=== PATIENT | female | born 1975 | race Two or more races ===

== ENCOUNTER 2024-06-20 09:41 | Inpatient (IN) | payer MEDICAID ==
[~2024-06-20] VITALS: Ht 162.6 cm; Wt 85.9 kg
[~2024-06-20 09:41] MED LIST: PRENATAL VITS
[2024-06-20 10:22] LABS: Urine Bacteria None Seen /hpf (None Seen)
--- NOTE | 2024-06-20 10:34 | ED.PDOC ---
GI ASSESSMENT HPI Comments 48 Y F, presents to the ED with CC of abdominal pain. Patient relays, that she has been experiencing RUQ abdominal pain that radiates to her back xdays , with associated symptoms of nausea and vomiting. Patient states, that she was seen at urgent care for her symptoms and was instructed to come to the ED for a further evaluation. Patient denies fever, chills, body aches, chest pain, or diarrhea. Chief Complaint: Abdominal Pain Time Seen by MD: 10:00 Primary Care Provider: HAKAN Cruz Notes: Nurses Notes, Medications, Allergies Allergies: Coded Allergies: NO KNOWN ALLERGIES (Unverified , 07/24/11) Home Meds Reported Medications [ Vits] No Conflict Check, QAM 07/24/11 Information Source: Patient Mode of Arrival: Ambulatory Duration: Since onset Prehospital treatment: None Quality: Cramping Vomitus: Watery Severity: Mild Recent: None Recent Hx of: None Pain Location: RUQ Modifying Factors: Nothing Associated sign and symptoms: Nausea, Vomiting Past Medical History PAST MEDICAL HISTORY: Denies Surgical History: Appendectomy, 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 Family History Family History: Unknown Social History Smoker: Non-Smoker Alcohol: Denies ETOH Use Drugs: Denies Drug Use Lives In: Home Constitutional: denies: chills, diaphoresis, fatigue, fever, malaise, sweats, weakness, others EENTM: denies: blurred vision, double vision, ear bleeding, ear discharge, ear drainage, ear pain, ear ringing, eye pain, eye redness, hearing loss, mouth pain, mouth swelling, nasal discharge, nose bleeding, nose congestion, nose pain, photophobia, tearing, throat pain, throat swelling, voice changes, others Respiratory: denies: cough, hemoptysis, orthopnea, SOB at rest, shortness of breath, SOB with excertion, stridor, wheezing, others Cardiovascular: denies: chest pain, dizzy spells, diaphoresis, Dyspnea on exertion, edema, irregular heart beat, left arm pain, lightheadedness, palpitations, PND, syncope, others Gastrointestinal: reports: abdominal pain, nausea, vomiting; denies: abdomen distended, blood streaked bowels, constipated, diarrhea, dysphagia, difficulty swallowing, hematemesis, melena, poor appetite, poor fluid intake, rectal bleeding, rectal pain, others Genitourinary: denies: abnormal vagina bleeding, burning, dyspareunia, dysuria, flank pain, frequency, hematuria, incontinence, pain, , vagina discharge, urgency, others Neurological: denies: dizziness, fainting, headache, left sided numbness, left sided weakness, numbness, paresthesia, pre-existing deficit, right sided numbness, right sided weakness, seizure, speech problems, tingling, tremors, weakness, others Musculoskeletal: reports: back pain; denies: gout, joint pain, joint swelling, muscle pain, muscle stiffness, neck pain, others Integumetry: denies: bruises, change in color, change in hair/nails, dryness, laceration, lesions, lumps, rash, wounds, others Allergic/Immunocompromised: denies: Difficulty Healing, Frequent Infections, Hives, Itching, others Hematologic/Lymphatic: denies: anemia, blood clots, easy bleeding, easy bruising, swollen glands, others Endocrine: denies: excessive hunger, excessive sweating, excessive thirst, excessive urination, flushing, intolerance to cold, intolerance to heat, unexplained weight gain, unexplained weight loss, others Psychiatric: denies: anxiety, bipolar disorder, depression, hopeless, panic disorder, schizophrenia, sleepless, suicidal, others All Other Systems: Reviewed and Negative Physical Exam General Appearance: Moderate Distress, Normal HEENT: Normal ENT Inspection, Pharynx Normal, TMs Normal Neck: Full Range of Motion, Non-Tender, Normal, Normal Inspection Respiratory: Chest Non-Tender, Lungs Clear, No Accessory Muscle Use, No Respiratory Distress, Normal Breath Sounds Cardiovascular: No Edema, No JVD, No Murmur, No Gallop, Normal Peripheral Pulses, Regular Rate/Rhythm Breast Exam: Deferred Gastrointestinal: No Organomegaly, Non Tender, No Pulsatile Mass, Normal Bowel Sounds, Soft Genitalia: Deferred Pelvic: Deferred Rectal: Deferred Extremities: No calf tenderness, Normal capillary refill, Normal inspection, Normal range of motion, Non-tender, No pedal edema Musculoskeletal : Apperance: Normal Neurologic: Alert, heel compressor II-XII nml as Tested, No Motor Deficits, Normal Affect, Normal Mood, No Sensory Deficits Cerebellar Function: Normal Reflexes: Normal Skin: Dry, Normal Color, Warm Peripheral Pulses: 3+ Radial (R), 3+ Radial (L) Lymphatic: No Adenopathy Was a procedure done? Was a procedure done?: No GI differential Dx Differential Diagnosis: Constipation, Esophagitis, Gastritis/PUD, Gastroenteritis, Electrolyte Imbalance, Food Poisoning, Viral X-Ray, Labs, Meds, VS Vital Signs Date Time Temp Pulse Resp B/P (MAP) Pulse Ox O2 Delivery O2 Flow Rate FiO2 06/20/24 13:09 97.9 77 17 123/66 (85) 98 97.9 06/20/24 09:46 97.5 73 16 121/55 (77) 100 Lab Test 06/20/24 10:19 06/20/24 09:55 Range/Units White Blood Count 4.1 L 4.4-10.8 10^3/uL Red Blood Count 4.50 4.0-5.20 10^6/uL Hemoglobin 12.2 12.2-16.2 g/dL Hematocrit 36.5 36.0-46.0 % Mean Corpuscular Volume 81.1 80.0-100.0 fL Mean Corpuscular Hemoglobin 27.1 L 28.0-32.0 pg Mean Corpuscular Hemoglobin Concent 33.4 32.0-36.0 g/dL Red Cell Distribution Width 14.7 H 11.8-14.3 % Platelet Count 238 140-450 10^3/uL Mean Platelet Volume 8.1 6.9-10.8 fL Neutrophils (%) (Auto) 51.4 37.0-80.0 % Lymphocytes (%) (Auto) 38.3 10.0-50.0 % Monocytes (%) (Auto) 8.3 0.0-12.0 % Eosinophils (%) (Auto) 1.5 0.0-7.0 % Basophils (%) (Auto) 0.5 0.0-2.0 % Neutrophils # (Auto) 2.1 1.6-8.6 10 ^3/uL Lymphocytes # (Auto) 1.6 0.4-5.4 10 ^3/uL Monocytes # (Auto) 0.3 0-1.3 10 ^3/uL Eosinophils # (Auto) 0.1 0-0.8 10 ^3/uL Basophils # (Auto) 0 0-0.2 10 ^3/uL Nucleated Red Blood Cells 0.1 % Sodium Level 140 136-145 mmol/L Potassium Level 3.9 3.5-5.1 mmol/L Chloride Level 107 98-107 mmol/L Carbon Dioxide Level 26 20-31 mmol/L Anion Gap 7 5-15 Blood Urea Nitrogen 13 9-23 mg/dL Creatinine 0.63 0.550-1.02 mg/dL Glomerular Filtration Rate Calc 111 >90 mL/min BUN/Creatinine Ratio 20.6 H 10.0-20.0 Serum Glucose 98 74-106 mg/dL Calcium Level 9.4 8.7-10.4 mg/dL Urine Color Colorless Yellow Urine Clarity Turbid H Clear Urine pH 6.0 5.0-9.0 Urine Specific [place] 1.019 1.001-1.035 Urine Protein Trace H Negative Urine Ketones Negative Negative Urine Blood 3+ H Negative /uL Urine Nitrite Negative Negative Urine Bilirubin Negative Negative Urine Urobilinogen Normal Negative mg/dL Urine Leukocyte Esterase 1+ Negative /uL Urine RBC 6214 0 - 4 /hpf Urine WBC 5 0 - 5 /hpf Urine Squamous Epithelial Cells None seen <5 /hpf Urine Bacteria None seen None Seen /hpf Urine Glucose Normal Normal mg/dL Patient alert. Complaining of back pain. Vitals stable. Answering all questions. UA shows blood. Possible kidney stone. Establish intravenous access. Was given fluids. Explained to the patient. Continue cardiac monitoring. Time of 1ST Reevaluation: 10:30 Reevaluation 1ST: Improved Time of 2ND Reevaluation: 12:35 Reevaluation 2ND: Improved Patient Education/Counseling: Diagnosis, Treatment Family Education/Counseling: No Family Present Departure 1 Departure Time of Disposition: 12:36 Impression: Primary Impression: Renal lesion Additional Impression: Urinary tract infection Qualified Codes: N30.01 - Acute cystitis with hematuria Disposition: 09 ADMITTED INPATIENT Admit to: Med Surg Condition: Guarded Critical Care Note Critical Care Time?: No Stability Stability form required: No Heart Score Heart Score: Heart Score Response (Comments) Value History N/A 0 EKG N/A 0 Age N/A 0 Risk Factors N/A 0 Troponin N/A 0 Total 0 I personally scribed for GINGER BECKFORD MD ([email or web address]) on 06/20/24 at 10:34. Electronically submitted by Maxine Hi ([email or web address]). GINGER BECKFORD MD Jun 20, 2024 10:34
[2024-06-20 10:46] LABS: Basophils # (auto) 0 10 ^3/uL (0-0.2); Basophils % (auto) 0.5 % (0.0-2.0); Eosinophils # (auto) 0.1 10 ^3/uL (0-0.8); Eosinophils % (auto) 1.5 % (0.0-7.0); Hematocrit 36.5 % (36.0-46.0); Hemoglobin 12.2 g/dL (12.2-16.2); Lymphocytes # (auto) 1.6 10 ^3/uL (0.4-5.4); Lymphocytes % (auto) 38.3 % (10.0-50.0); Mean Corpuscular Hemoglobin 27.1 pg (28.0-32.0); Mean Corpuscular Hgb Conc. 33.4 g/dL (32.0-36.0); Mean Corpuscular Volume 81.1 fL (80.0-100.0); Monocytes # (auto) 0.3 10 ^3/uL (0-1.3); Monocytes % (auto) 8.3 % (0.0-12.0); Neutrophils # (auto) 2.1 10 ^3/uL (1.6-8.6); Neutrophils % (auto) 51.4 % (37.0-80.0); Nucleated Red Blood Cells % 0.1 %; Platelet Count (auto) 238 10^3/uL (140-450); Red Cell Distribution Width 14.7 % (11.8-14.3); White Blood Cell 4.1 10^3/uL (4.4-10.8)
[2024-06-20 10:49] LABS: Anion Gap 7 (5-15); Carbon Dioxide 26 mmol/L (20-31); Potassium 3.9 mmol/L (3.5-5.1); Sodium 140 mmol/L (136-145)
[2024-06-20 10:50] LABS: Calcium 9.4 mg/dL (8.7-10.4)
[2024-06-20 10:51] LABS: Chloride 107 mmol/L (98-107)
[2024-06-20 10:55] LABS: BUN/Creatinine Ratio 20.6 (10.0-20.0); Blood Urea Nitrogen 13 mg/dL (9-23); Glucose 98 mg/dL (74-106)
[2024-06-20 11:06] LABS: Urine Blood 3+ /uL (Negative); Urine Clarity Turbid (Clear); Urine Color Colorless (Yellow); Urine Protein, UAD TRACE (Negative); Urine Specific Gravity 1.019 (1.001-1.035); Urine Squamous Epithelial Cell None Seen /hpf (<5); Urine Urobilinogen Normal (Negative); Urine WBC 5 /hpf (0 - 5)
--- NOTE | 2024-06-20 13:04 | DVH ---
Exam: CT CT AB PEL WO CON-NO ORAL OR IV History: stone Comparison Study: None available at time of dictation. TECHNIQUE: Multidetector CT of the abdomen was performed from lung bases to pubic symphysis. Imaging was performed without IV contrast. Axial, coronal and sagittal multiplanar reformats were obtained fr om the axial data set by the technologist. Radiation Dose Information: CT Dose: CTDI volume is 16.21 mGy. Dose-length product is 886.80 mGy*cm FINDINGS: Evaluation of solid organs is limited due to lack of intravenous contrast use. Findings: Lung Bases: No acute or significant lung base finding. Normal heart size. No pleural or pericardial effusion. Liver: The liver is normal in size. No focal lesions. Gallbladder and Biliary Tree: Unremarkable Spleen: Unremarkable. A splenule is present. Pancreas: The pancreas is grossly normal in appearance. Adrenal Glands: Unremarkable Kidneys: Kidneys are grossly normal without calculi or hydronephrosis. Subcentimeter hypodense right renal lesion, too small to characterize. Bladder: Grossly unremarkable for degree of distention. Bowel: The stomach is grossly normal in appearance. Small bowel and colon are normal in caliber and d istribution. Minimal diverticulosis. The appendix is not visualized, with metallic suture / clip in i ts expected location, suggesting prior appendectomy. Ascites: Absent Lymphadenopathy: No mesenteric, retroperitoneal or periportal lymphadenopathy. Abdominal Wall and Mesentery: Small fat containing umbilical hernia. Vasculature: The visualized abdominal aorta is normal in size and caliber. Evaluation of abdominal a nd pelvic vessels is limited due to lack of intravenous contrast. Pelvic Organs: Unremarkable Musculoskeletal: No aggressive focal bony lesions, acute fractures or dislocation. Degenerative cabrera es of the visualized spine. Soft tissues: Unremarkable IMPRESSION: 1. No renal or ureteral calculi identified. No hydronephrosis bilaterally. 2. Subcentimeter right renal hypodense lesion, too small to characterize. If of clinical concern, cou ld be further evaluated with renal ultrasound. 3. Diverticulosis with no definite evidence of acute diverticulitis. Radiation optimization: All CT scans at this facility use at least one of these dose optimization te chniques: automated exposure control mA and/or kV adjustment per patient size (includes targeted exa ms where dose is matched to clinical indication) or iterative reconstruction. HS:Y
[2024-06-20] MEDS: cefTRIAXone 1GM/50ML D5W 50 ML IV ONE (13:56)
[2024-06-20] MEDS: KETOROLAC TROMETH 30 MG/ML 1ML VIAL IV ONE (13:57)
[2024-06-20] MEDS ORDERED: DOCUSATE SOD 100 MG CAP PO PRN (14:45)
[2024-06-20] MEDS ORDERED: ONDANSETRON HCL 4 MG/2 ML VIAL IV PRN (14:45)
[2024-06-20] MEDS ORDERED: ACETAMINOPHEN 325 MG TAB PO PRN (14:45)
[2024-06-20] MEDS ORDERED: MORPHINE SULFATE INJ 2 MG/ml SYRG IV PRN ×2 (14:45→16:45)
--- NOTE | 2024-06-20 16:33 | DVHHP2 ---
History of Present Illness Reason for Visit: Acute abdominal pain History of Present Illness The patient is a 48 year old female with past medical history of appendicitis presented to [facility] ED with complaint of right upper quadrant abdominal pain. Patient reports symptoms progressively get worse with radiating back pain, associated nausea, vomiting. Patient was seen and evaluated in the ED, laboratory data shows WBC 4.1, platelets 238, sodium 140, potassium 3.9, BUN 13, creatinine 0.63, GFR 111, glucose 98, blood pressure 123/66, heart rate 77, temperature 97.9 F, O2 saturation 98% on room air. Urinalysis positive for urinary tract infection. Patient was started on IV antibiotic regimen Rocephin, please see medication orders section in the computer. On my assessment, patient denied chest pain, no headache, no dizziness, no abdominal pain, no nausea or vomiting at this moment, no diarrhea, no fever, no chills. Patient was admitted for further evaluation and medical management. Past Medical History Denies past medical history Past Surgical History Appendectomy, Family History Reviewed, noncontributory to the management of this case. Past Social History The patient lives at home, denies smoking, alcohol or illicit drugs abuse. Review of Systems Constitutional: No: Fever, Chills, Sweats, Weakness, Malaise, Other Eyes: No: Pain, Vision change, Conjunctivae inflammation, Eyelid inflammation, Other, Redness ENT: No: Ear pain, Ear discharge, Nose pain, Nose discharge, Nose congestion, Mouth pain, Mouth swelling, Throat pain, Throat swelling, Other Respiratory: No: Cough, Dry, Shortness of breath, SOB with excertion, Wheezing, Hemoptysis, Pleuritic Pain, Sputum, Wheezing, Other Cardiovascular: No: Chest Pain, Palpitations, Orthopnea, Paroxysmal Noc. Dyspnea, Edema, Lt Headedness, Other Gastrointestinal: Nausea, Vomiting, Abdominal Pain; No: Diarrhea, Constipation, Melena, Hematochezia, Other Genitourinary: No Dysuria, No Frequency, No Incontinence, No Hematuria, No Retention, No Other Musculoskeletal: back pain; No: other, neck pain, shoulder pain, arm pain, hand pain, leg pain, foot pain Skin: No: Rash, Lesions, Jaundice, Bruising, Other Neurological: No: Weakness, Numbness, Incoordination, Change in speech, Con fusion, Seizures, Other Allergies: Coded Allergies: NO KNOWN ALLERGIES (Unverified , 07/24/11) Medications Current Medications Medications Dose Ordered Sig/Martha Route Start Time Stop Time Status Last Admin Dose Admin Ceftriaxone Sodium 50 ml @ 100 mls/hr DAILY@09 IV 06/21/24 09:00 Acetaminophen/ Hydrocodone Bitart 1 tab Q4HP PRN PO 06/20/24 14:45 Ondansetron HCl 4 mg Q4HP PRN IV 06/20/24 14:45 Docusate Sodium 100 mg BIDPRN PRN PO 06/20/24 14:45 Acetaminophen 650 mg Q6HP PRN PO 06/20/24 14:45 Morphine Sulfate 2 mg Q4HPRN PRN IV 06/20/24 14:45 Pantoprazole Sodium 40 mg DAILY IV 06/21/24 10:00 Sodium Chloride 1,000 ml @ 75 mls/hr [id number] IV 06/20/24 14:45 Exam Vital Signs Vital Signs Date Time Temp Pulse Resp B/P (MAP) Pulse Ox O2 Delivery O2 Flow Rate FiO2 06/20/24 13:09 97.9 77 17 123/66 (85) 98 97.9 General Appearance: Alert, Oriented X3, Cooperative, No acute distress HEENT: Atraumatic, PERRLA, EOMI, Mucous membr. moist/pink Respiratory: Clear to auscultation, Normal air movement Cardiovascular: Regular rate, Normal S1, Normal S2, No murmurs Abdominal: Normal bowel sounds, Soft, No hepatospenomegaly, No masses, Other (Reports tenderness) Extremities: No clubbing, No cyanosis, No edema, Normal pulses, No tenderness/swelling Skin: No rashes, No breakdown, No significant lesion Neuro: Normal gait, Normal speech, Strength at 5/5 X4 ext, Normal tone, Sensation intact, Cranial nerves 3-12 NL, Reflexes 2+ Psych/Mental Status: Mental status NL, Mood NL Labs/Xrays Labs Test 06/20/24 10:19 06/20/24 09:55 Range/Units White Blood Count 4.1 L 4.4-10.8 10^3/uL Red Blood Count 4.50 4.0-5.20 10^6/uL Hemoglobin 12.2 12.2-16.2 g/dL Hematocrit 36.5 36.0-46.0 % Mean Corpuscular Volume 81.1 80.0-100.0 fL Mean Corpuscular Hemoglobin 27.1 L 28.0-32.0 pg Mean Corpuscular Hemoglobin Concent 33.4 32.0-36.0 g/dL Red Cell Distribution Width 14.7 H 11.8-14.3 % Platelet Count 238 140-450 10^3/uL Mean Platelet Volume 8.1 6.9-10.8 fL Neutrophils (%) (Auto) 51.4 37.0-80.0 % Lymphocytes (%) (Auto) 38.3 10.0-50.0 % Monocytes (%) (Auto) 8.3 0.0-12.0 % Eosinophils (%) (Auto) 1.5 0.0-7.0 % Basophils (%) (Auto) 0.5 0.0-2.0 % Neutrophils # (Auto) 2.1 1.6-8.6 10 ^3/uL Lymphocytes # (Auto) 1.6 0.4-5.4 10 ^3/uL Monocytes # (Auto) 0.3 0-1.3 10 ^3/uL Eosinophils # (Auto) 0.1 0-0.8 10 ^3/uL Basophils # (Auto) 0 0-0.2 10 ^3/uL Nucleated Red Blood Cells 0.1 % Sodium Level 140 136-145 mmol/L Potassium Level 3.9 3.5-5.1 mmol/L Chloride Level 107 98-107 mmol/L Carbon Dioxide Level 26 20-31 mmol/L Anion Gap 7 5-15 Blood Urea Nitrogen 13 9-23 mg/dL Creatinine 0.63 0.550-1.02 mg/dL Glomerular Filtration Rate Calc 111 >90 mL/min BUN/Creatinine Ratio 20.6 H 10.0-20.0 Serum Glucose 98 74-106 mg/dL Calcium Level 9.4 8.7-10.4 mg/dL Urine Color Colorless Yellow Urine Clarity Turbid H Clear Urine pH 6.0 5.0-9.0 Urine Specific [place] 1.019 1.001-1.035 Urine Protein Trace H Negative Urine Ketones Negative Negative Urine Blood 3+ H Negative /uL Urine Nitrite Negative Negative Urine Bilirubin Negative Negative Urine Urobilinogen Normal Negative mg/dL Urine Leukocyte Esterase 1+ Negative /uL Urine RBC 6214 0 - 4 /hpf Urine WBC 5 0 - 5 /hpf Urine Squamous Epithelial Cells None seen <5 /hpf Urine Bacteria None seen None Seen /hpf Urine Glucose Normal Normal mg/dL PATIENT: TEN MADERA ACCT: [id number] UNIT: [id number] : 1975 LOC: ER ROOM / BED: / AGE / SEX: 48 / F ADM STATUS: REG ER SERVICE [id number] ORDERING PHYSICIAN: GINGER BECKFORD MD PROCEDURE(s): ABPL - CT AB PEL WO CON-NO ORAL OR IV REASON: stone ORDER NUMBER(s): [id number], ACCESSION NUMBER(s): [id number] Exam: CT CT AB PEL WO CON-NO ORAL OR IV History: stone Comparison Study: None available at time of dictation. TECHNIQUE: Multidetector CT of the abdomen was performed from lung bases to pubic symphysis. Imaging was performed without IV contrast. Axial, coronal and sagittal multiplanar reformats were obtained from the axial data set by the technologist. Radiation Dose Information: CT Dose: CTDI volume is 16.21 mGy. Dose-length product is 886.80 mGy*cm FINDINGS: Evaluation of solid organs is limited due to lack of intravenous contrast use. Findings: Lung Bases: No acute or significant lung base finding. Normal heart size. No pleural or pericardial effusion. Liver: The liver is normal in size. No focal lesions. Gallbladder and Biliary Tree: Unremarkable Spleen: Unremarkable. A splenule is present. Pancreas: The pancreas is grossly normal in appearance. Adrenal Glands: Unremarkable Kidneys: Kidneys are grossly normal without calculi or hydronephrosis. Subcentimeter hypodense right renal lesion, too small to characterize. Bladder: Grossly unremarkable for degree of distention. Bowel: The stomach is grossly normal in appearance. Small bowel and colon are normal in caliber and distribution. Minimal diverticulosis. The appendix is not visualized, with metallic suture / clip in its expected location, suggesting prior appendectomy. Ascites: Absent Lymphadenopathy: No mesenteric, retroperitoneal or periportal lymphadenopathy. Abdominal Wall and Mesentery: Small fat containing umbilical hernia. Vasculature: The visualized abdominal aorta is normal in size and caliber. Evaluation of abdominal and pelvic vessels is limited due to lack of intravenous contrast. Pelvic Organs: Unremarkable Musculoskeletal: No aggressive focal bony lesions, acute fractures or dislocation. Degenerative changes of the visualized spine. Soft tissues: Unremarkable IMPRESSION: 1. No renal or ureteral calculi identified. No hydronephrosis bilaterally. 2. Subcentimeter right renal hypodense lesion, too small to characterize. If of clinical concern, could be further evaluated with renal ultrasound. 3. Diverticulosis with no definite evidence of acute diverticulitis. Assessment/Plan Assessment/Plan Abdominal pain Nausea and vomiting Renal lesion Urinary tract infection Acute cystitis with hematuria Plan 1. Admit to med surge unit 2. Breathing treatment 3. Pain control management 4. IV antibiotic management 5. Management of fluids and electrolytes 6. Consultation for hospitalist 7. Diagnostic test abdomen/pelvis CT 8. DVT prophylaxis on SCDs 9. Repeat labs CBC, CMP in a.m. 10. Continue with current medical management 11. Treatment plan discussed with patient and RN. Patient verbalized understanding. Plan discussed with: Patient, Other (RN) My Orders Orders - ASHLEY SANCHEZ DNP Procedure Category Date Status Time Urine Bacterial SHANELL 06/20/24 In Process Culture 14:40 Ceftriaxone 1gm/50ml PHA 06/21/24 In Process D5w (Rocephin) 09:00 Allergies MARYJANE 06/20/24 In Process 14:40 Code Status CODE 06/20/24 Transmitted 14:40 Oxygen Per Hour RT 06/20/24 Transmitted 14:40 Hydrocodone-Acet PHA 06/20/24 In Process 5/325mg Tab ([place] 14:45 Complete Blood Count LAB 06/21/24 Verified 04:00 Comprehensive LAB 06/21/24 Verified Metabolic Panel 04:00 Condition: Serious MARYJANE 06/20/24 In Process 14:40 Acetaminophen Tablet PHA 06/20/24 In Process (Tylenol Tablet) 14:45 Clear Liq Diet DIET 06/20/24 Transmitted Dinner Bedrest With Bathroom MARYJANE 06/20/24 In Process Privileg 14:40 Morphine Sulfate PHA 06/20/24 In Process Injection 14:45 Sequential MARYJANE 06/20/24 In Process Compression Device Pantoprazole PHA 06/21/24 In Process (Protonix) 10:00 Sod Chl 0.45% (Sodium PHA 06/20/24 In Process Chloride 0.45% Via 14:45 Ondansetron Hcl PHA 06/20/24 In Process (Zofran) 14:45 Docusate Sodium PHA 06/20/24 In Process Capsule (Colace 14:45 Problem List: (1) Abdominal pain (2) Renal lesion (3) Urinary tract infection (4) Nausea and vomiting (5) Acute cystitis with hematuria Date of Service: Jun 20, 2024 Billing Provider: ASHLEY SANCHEZ DNP Common Visit Codes: 51326-HVGCJWR INP/OBS CARE (HIGH) ASHLEY SANCHEZ DNP Jun 20, 2024 16:33
[2024-06-20] MEDS ORDERED: NITROGLYCERIN 0.4 MG SL TAB SL PRN (16:45)
[2024-06-20] MEDS: PANTOPRAZOLE 40 MG/10 ML VIAL INJ IV ONE (18:11)
[2024-06-20 20:51] VITALS: BP 118/67; PULSE 67; RESP 18; TEMP 98; O2SAT 99
[2024-06-20] MEDS: HYDROcodone-ACET 5/325MG TAB PO PRN (23:26)
[2024-06-21 00:55] VITALS: BP 100/53; PULSE 65; RESP 16; TEMP 97.8; O2SAT 97
[2024-06-21 05:00] VITALS: BP 106/46; PULSE 60; RESP 16; TEMP 97.7; O2SAT 97
[2024-06-21] MEDS: SOD CHL 0.45% 1,000 ML IV SCH (06:32)
[2024-06-21 07:13] LABS: Basophils # (auto) 0 10 ^3/uL (0-0.2); Basophils % (auto) 0.5 % (0.0-2.0); Eosinophils # (auto) 0.1 10 ^3/uL (0-0.8); Eosinophils % (auto) 2.7 % (0.0-7.0); Hematocrit 35.3 % (36.0-46.0); Hemoglobin 12.6 g/dL (12.2-16.2); Lymphocytes # (auto) 1.5 10 ^3/uL (0.4-5.4); Lymphocytes % (auto) 35.8 % (10.0-50.0); Mean Corpuscular Hemoglobin 28.9 pg (28.0-32.0); Mean Corpuscular Hgb Conc. 35.7 g/dL (32.0-36.0); Mean Corpuscular Volume 80.8 fL (80.0-100.0); Monocytes # (auto) 0.4 10 ^3/uL (0-1.3); Neutrophils # (auto) 2.2 10 ^3/uL (1.6-8.6); Platelet Count (auto) 214 10^3/uL (140-450); Red Blood Cells 4.36 10^6/uL (4.0-5.20); Red Cell Distribution Width 14.5 % (11.8-14.3); White Blood Cell 4.2 10^3/uL (4.4-10.8)
[2024-06-21 07:34] LABS: Alanine Aminotransferase 20 U/L (7-40); Alkaline Phosphatase 90 U/L (46-116); Anion Gap 8 (5-15); BUN/Creatinine Ratio 23.8 (10.0-20.0); Bilirubin, Total 0.4 mg/dL (0.2-1.0); Blood Urea Nitrogen 15 mg/dL (9-23); Calcium 9.2 mg/dL (8.7-10.4); Carbon Dioxide 25 mmol/L (20-31); Glucose 90 mg/dL (74-106); Sodium 141 mmol/L (136-145); Total Protein 6.8 g/dL (5.7-8.2)
[2024-06-21 07:37] LABS: Chloride 108 mmol/L (98-107); Potassium 3.5 mmol/L (3.5-5.1)
[2024-06-21 08:04] LABS: Aspartate Aminotransferase 16 U/L (13-40)
[2024-06-21 08:17] VITALS: BP 101/40; PULSE 70; RESP 20; TEMP 98; O2SAT 98
[2024-06-21 09:09] VITALS: PULSE 65; RESP 18; O2SAT 96
[2024-06-21] MEDS: cefTRIAXone 1GM/50ML D5W 50 ML IV SCH (10:09)
[2024-06-21] MEDS: PANTOPRAZOLE 40 MG/10 ML VIAL INJ IV SCH (10:09)
[2024-06-21] MEDS ORDERED: CIPR1SUS8 OT (11:12)
[2024-06-21] MEDS ORDERED: AUG875T PO (11:12)
--- NOTE | 2024-06-21 11:16 | DVHDS2 ---
Discharge Summary Date of Admission Jun 20, 2024 at 16:31 Date of Discharge: Jun 21, 2024 Labs/Diagnostic Data: Laboratory Results Test 06/21/24 06:30 06/20/24 09:55 White Blood Count 4.2 10^3/uL (4.4-10.8) Red Blood Count 4.36 10^6/uL (4.0-5.20) Hemoglobin 12.6 g/dL (12.2-16.2) Hematocrit 35.3 % (36.0-46.0) Mean Corpuscular Volume 80.8 fL (80.0-100.0) Mean Corpuscular Hemoglobin 28.9 pg (28.0-32.0) Mean Corpuscular Hemoglobin Concent 35.7 g/dL (32.0-36.0) Red Cell Distribution Width 14.5 % (11.8-14.3) Platelet Count 214 10^3/uL (140-450) Mean Platelet Volume 8.2 fL (6.9-10.8) Neutrophils (%) (Auto) 51.0 % (37.0-80.0) Lymphocytes (%) (Auto) 35.8 % (10.0-50.0) Monocytes (%) (Auto) 10.0 % (0.0-12.0) Eosinophils (%) (Auto) 2.7 % (0.0-7.0) Basophils (%) (Auto) 0.5 % (0.0-2.0) Neutrophils # (Auto) 2.2 10 ^3/uL (1.6-8.6) Lymphocytes # (Auto) 1.5 10 ^3/uL (0.4-5.4) Monocytes # (Auto) 0.4 10 ^3/uL (0-1.3) Eosinophils # (Auto) 0.1 10 ^3/uL (0-0.8) Basophils # (Auto) 0 10 ^3/uL (0-0.2) Nucleated Red Blood Cells 0.0 % Sodium Level 141 mmol/L (136-145) Potassium Level 3.5 mmol/L (3.5-5.1) Chloride Level 108 mmol/L (98-107) Carbon Dioxide Level 25 mmol/L (20-31) Anion Gap 8 (5-15) Blood Urea Nitrogen 15 mg/dL (9-23) Creatinine 0.63 mg/dL (0.550-1.02) Glomerular Filtration Rate Calc 111 mL/min (>90) BUN/Creatinine Ratio 23.8 (10.0-20.0) Serum Glucose 90 mg/dL (74-106) Calcium Level 9.2 mg/dL (8.7-10.4) Total Bilirubin 0.4 mg/dL (0.2-1.0) Aspartate Amino Transferase (AST) 16 U/L (13-40) Alanine Aminotransferase (ALT) 20 U/L (7-40) Alkaline Phosphatase 90 U/L (46-116) Total Protein 6.8 g/dL (5.7-8.2) Albumin 4.0 g/dL (3.2-4.8) Urine Color Colorless (Yellow) Urine Clarity Turbid (Clear) Urine pH 6.0 (5.0-9.0) Urine Specific [place] 1.019 (1.001-1.035) Urine Protein Trace (Negative) Urine Ketones Negative (Negative) Urine Blood 3+ /uL (Negative) Urine Nitrite Negative (Negative) Urine Bilirubin Negative (Negative) Urine Urobilinogen Normal mg/dL (Negative) Urine Leukocyte Esterase 1+ /uL (Negative) Urine RBC 6214 /hpf (0 - 4) Urine WBC 5 /hpf (0 - 5) Urine Squamous Epithelial Cells None seen /hpf (<5) Urine Bacteria None seen /hpf (None Seen) Urine Glucose Normal mg/dL (Normal) Other Laboratory Tests 06/21/24 06:30 Brief Hx & Hospital Course: 48 yo F admitted for abdominal pain. On my assessment, patient does not have abdominal pain anymore, no nausea, no vomiting,m no diarrhea. Patient however reported dizziness headache and ear pain. On my physical exam, patient with paranasal and frontal sinus tenderness and dull tympanic membrane. Patient currently does not have flu like symptoms, denies fever, chills. Patient was stabele to discharge home on oral antibiotics and otic drop. Abdominal ct scan with diverticulosis w/o diverticulitis and subcm renal nodule, can be followed as outpatient Condition at Discharge: Good Final Diagnosis/Problems List otitis externa / media acute bact sinusitis Discharge Disposition: Home Discharge Instruct/Medications Diet: Regular Activity: No Restrictions, As Tolerated Medications: cipro otic augmentin 38 Discharge Statement: "Patient was advised to return to the ER or call 911 if any headaches, dizziness, shortness of breath, chest pain, abdominal pain, bleeding, fevers, or worsening of medical condition. Patient was counseled about treatment plan, medications, possible side effects, patientverbalized understanding. All questions were answered to the best of my ability. This discharge took greater then 30 minutes in planning, reviewing documentation, counseling the patient, and discussing with other team members." ASSESSMENT ASSESSMENT Assessment otitis externa / media acute bact sinusitis Date of Service: Jun 21, 2024 Billing Provider: AMARI AVLIA MD Common Visit Codes: 48905-EAW/OBS DISCH DAY >30min AMARI AVILA MD Jun 21, 2024 11:16
[2024-06-21 12:00] VITALS: BP 118/73; PULSE 75; RESP 20; TEMP 97.9; O2SAT 98
== END 2024-06-21 12:30 | disposition home or self-care (01) | DRG 463 ==
LOC: ER 09:41 → OVERFLOW 16:31
PROVIDERS: ADMIT Nurse Practitioner Family; ATTEND Student in an Organized Health Care Education/Training Program
DX: N30.01 Acute cystitis with hematuria (principal); J01.80 Other acute sinusitis; K57.30 Diverticulosis of large intestine without perforation or abscess without bleeding; M54.9 Dorsalgia, unspecified; N28.9 Disorder of kidney and ureter, unspecified; Z90.49 Acquired absence of other specified parts of digestive tract; Z98.891 History of uterine scar from previous surgery; Z87.19 Personal history of other diseases of the digestive system
CPT/HCPCS: 36415; 74176; 80048; 80053; 81001; 85025; 87086; 99291; G0378; J1885; J2470